=== PATIENT | female | born 1995 | race Caucasian/White ===

== ENCOUNTER 2016-08-28 20:00 | Emergency (ER) | payer SELFPAY ==
[~2016-08-28] VITALS: Ht 162.6 cm; Wt 58.5 kg
[2016-08-28 20:03] VITALS: Ht 162.6 cm; Wt 58.5 kg
[2016-08-28] MEDS ORDERED: morphine 4 MG/ML VIAL IV STA (21:52)
[2016-08-28] MEDS ORDERED: ONDANSETRON 4 MG INJ IV STA (21:52)
--- NOTE | 2016-08-28 22:03 | ERD ---
ER Documentation Chief Complaint Date/Time DATE: 08/28/16 TIME: 22:00 Chief Complaint RLQ abd pain x 3 days HPI 20-year-old female presents to emergency department for complaints of right lower quadrant abdominal pain for 3 days, patient describes the pain as throbbing pain, 6/10 scale, accompanied with nausea but denies any vomiting. Patient denies any vomiting diarrhea or constipation. Patient denies hematuria or dysuria. Patient denies any fever or chills. ROS All systems reviewed and are negative except as per history of present illness. Medications Home Meds Reported Medications [none] Unknown Strength No Conflict Check 08/28/16 Allergies Allergies: Coded Allergies: No Known Allergy (Unverified , 08/28/16) PMhx/Soc Medical and Surgical Hx: pt denies Medical Hx, pt denies Surgical Hx FmHx Family History: No coronary disease, No diabetes, No other Physical Exam Vitals Vital Signs Date Time Temp Pulse Resp B/P Pulse Ox O2 Delivery O2 Flow Rate FiO2 08/28/16 20:03 98.3 75 20 122/60 100 Physical Exam GENERAL: The patient is well developed and appropriate for usual state of health, in no apparent distress. CHEST: Clear to auscultation bilaterally. There are no rales, wheezes or rhonchi. HEART: Regular rate and rhythm. No murmurs, clicks, rubs or gallops. No S3 or S4. ABDOMEN: Soft, right lower quadrant tenderness Good bowel sounds. No rebound or guarding. No gross peritonitis. No gross organomegaly or masses. BACK: No midline or flank tenderness. EXTREMITIES: Equal pulses bilaterally. There is no peripheral clubbing, cyanosis or edema. No focal swelling or erythema. Full range of motion. Grossly neurovascularly intact. NEURO: Alert and oriented. Cranial nerves 2-12 intact. Motor strength in all 4 extremities with 5/5 strength. Sensation grossly intact. Normal speech and gait. SKIN: There is no apparent rash or petechia. The skin is warm and dry. HEMATOLOGIC AND LYMPHATIC: There is no evidence of excessive bruising or lymphedema. No gross cervical, axillary, or inguinal lymphadenopathy. Result Diagram: 08/28/167 08/28/16 2217 Results 24 hrs Laboratory Tests Test 08/28/16 22:15 08/28/16 22:17 Urine Color YELLOW Urine Clarity SLIGHTLY CLOUDY Urine pH 5.0 Urine Specific Dexter 1.013 Urine Ketones NEGATIVEmg/dL Urine Nitrite NEGATIVEmg/dL Urine Bilirubin NEGATIVEmg/dL Urine Urobilinogen NEGATIVEmg/dL Urine Leukocyte Esterase 1+Martha/ul Urine Microscopic RBC 1/HPF Urine Microscopic WBC 5/HPF Urine Squamous Epithelial Cells FEW/HPF Urine Hemoglobin NEGATIVEmg/dL Urine Glucose NEGATIVEmg/dL Urine Total Protein NEGATIVEmg/dl White Blood Count 8.610^3/ul Red Blood Count 4.3210^6/ul Hemoglobin 13.1g/dl Hematocrit 40.8% Mean Corpuscular Volume 94.4fl Mean Corpuscular Hemoglobin 30.3pg Mean Corpuscular Hemoglobin Concent 32.1g/dl Red Cell Distribution Width 13.3% Platelet Count 85180^3/UL Mean Platelet Volume 9.6fl Neutrophils % 49.6% Lymphocytes % 32.4% Monocytes % 12.9% Eosinophils % 4.4% Basophils % 0.5% Nucleated Red Blood Cells % 0.0/100WBC Neutrophils # 4.310^3/ul Lymphocytes # 2.810^3/ul Monocytes # 1.110^3/ul Eosinophils # 0.410^3/ul Basophils # 0.010^3/ul Nucleated Red Blood Cells # 0.010^3/ul Sodium Level 140mmol/L Potassium Level 3.6mmol/L Chloride Level 102mmol/L Carbon Dioxide Level 23mmol/L Anion Gap 19 Blood Urea Nitrogen 7mg/dl Creatinine 0.70mg/dl Glucose Level 91mg/dl Calcium Level 9.5mg/dl Total Bilirubin 0.2mg/dl Direct Bilirubin 0.00mg/dl Indirect Bilirubin 0.2mg/dl Aspartate Amino Transf (AST/SGOT) 18IU/L Alanine Aminotransferase (ALT/SGPT) 23IU/L Alkaline Phosphatase 63IU/L Total Protein 8.5g/dl Albumin 4.7g/dl Globulin 3.80g/dl Albumin/Globulin Ratio 1.23 Lipase 83U/L Current Medications Medications (Trade) Dose Ordered Sig/Evan Route PRN Reason Start Time Stop Time Status Last Admin Dose Admin Morphine Sulfate (morphine) 4 mg ONCE STAT IV 08/28/16 21:52 08/28/16 21:54 DC 08/28/16 22:19 Ondansetron HCl (Zofran Inj) 4 mg ONCE STAT IV 08/28/16 21:52 7/19/17 21:54 DC 08/28/16 22:18 Patient was given medication for pain here in emergency department, after treatment, patient verbalized feeling much better. Patient's pain is improved.Patient was given Zofran here in the emergency department. After treatment, patient was able to tolerate po fluids here in the emergency department without any vomiting. There is no signs and symptoms of dehydration. PROCEDURE: CT ABDOMEN/PELVIS WITHOUT CONTRAST CLINICAL INDICATION: 20-year-old female with right lower quadrant pain. TECHNIQUE: The study was performed utilizing a [employer] VCT 64-slice CT scanner. Direct axial sections were obtained through the abdomen and pelvis without the use of intravenous contrast material. Sagittal and coronal reformations were obtained. One or more of the following dose reduction techniques were utilized: automated exposure control, adjustment of the mA and/ or kV according to patient's size or use of iterative reconstruction technique. The images were reviewed on a PACS workstation. CTD/vol = 6.9 mGy; Total Exam DLP = 350.1 mGy-cm. COMPARISON: None. FINDINGS: The lung bases are unremarkable. There is no evidence for significant pleural effusion. The liver has a normal size and contour without focal areas of abnormal density. No intrahepatic nor extrahepatic biliary ductal dilatation is seen. The gallbladder demonstrates no wall thickening nor pericholecystic fluid. No biliary stones are evident. The pancreas is without areas of abnormal attenuation. The spleen is identified and has a normal size without abnormal density. The adrenal glands are unremarkable. The kidneys are without abnormal density. No hydroureteronephrosis nor nephroureterolithiasis is evident. The urinary bladder contains urine. There is mild retained stool within the colon without obstruction. The appendix is visualized and is without abnormal thickening or surrounding inflammatory reaction. The uterus is unremarkable. There is a large cystic mass within the pelvis measuring approximately 8.2 x 7.8 x 11.4 cm which appears to have septations and minimal calcifications within it. There is mild pelvic free fluid. The aortoiliac vessels are without aneurysmal dilatation. The osseous structures are intact. IMPRESSION: 1. Large pelvic cystic mass with septations and minimal calcifications. This may represent an ovarian cystadenoma. Further evaluation is indicated. 2. Mild pelvic free fluid. 3. Mild retained stool within the colon without obstruction. 4. No CT evidence for appendicitis. .Garrett Ricci MD, MD Date Time Electronically viewed and signed by .Garrett Ricci MD, MD on 08/28/2016 23:28 .M/ CC: NU MEEHAN NP PROCEDURE: US Pelvis. CLINICAL INDICATION: Pelvic pain TECHNIQUE: Multiple sonographic images of the pelvis were obtained utilizing a transabdominal technique. The images were reviewed on a PACS workstation. COMPARISON: None available FINDINGS: Uterus: Normal in size, contour and echogenicity with no evidence for myometrial masses. Size is estimated at 8.2 x 4.2 x 2.6 cm. Cervix: No abnormalities of significance are seen. Endometrium: Normal in thickness; 10.1 mm. Right ovary / adnexa: Enlarged by a septated ovarian cyst that measures 11.2 x 7.8 x 7 cm. Overall ovarian size estimated at 11.8 x 8.4 x 7.3 cm. There is blood flow demonstrated within the ovarian tissue. Left ovary/adnexa: Normal in size estimated at 4.4 x 2.6 x 1.8 cm. No evidence for solid masses, normal blood flow on Doppler interrogation. Cul-de-sac: Trace amount of free fluid. RPTAT:HJJR IMPRESSION: 1. Large complex cystic mass of the right ovary measures approximately 11.2 x 7.8 x 7 cm likely a cyst with septations and internal debris but without associated portion. Follow-up evaluation is recommended. 2. Small amount of fluid in the cul-de-sac possibly physiologic. 3. Remainder of the examination is unremarkable. Physician Ania Date Time Electronically viewed and signed by Physician Ania on 08/29/2016 00:53 JR/ CC: UN MEEHAN NP I discussed this case with OB Laborist, , at this time, patient's pain is controlled, no symptoms of any ovarian torsion, patient has an enlarged cyst on affected area, most of the time is benign but patient is to have tumor markers checked by outpatient OB doctor for further evaluation. Upon reevaluation of the patient, patient does not complain of any pain, patient is comfortable and resting. Outpatient management is appropriate at this time as per recommendation by the OB. Procedures/MDM Medical Decision Making: She has a right ovarian cyst that is complex and enlarged most likely is causing the right lower quadrant abdominal pain. No appendicitis noted. No symptoms of any ovarian torsion, patient was given torsion precautions, this time, patient has good flow to ovaries and ultrasound , patient pain is also controlled. As per discussion with OB, outpatient management is appropriate, was recommended to do tumor markers and possible do a surgical procedure for possible removal of the cyst. There is low suspicion for abdominal emergencies at this time. Patients abdominal exam is normal at this time. Patients radiology exam does not show any abdominal emergencies at this time. There is low suspicion for appendicitis, cholecystitis, abdominal aortic aneurysms or peritonitis at this time. There is low suspicion for sepsis. Patient appears well and is hemodynamically stable. Disposition: Home. Condition: Stable Prescription ibuprofen, tramadol Instructions: Patient is advised to take medications as prescribed. Patient is advised to rest, increase fluid intake and do see OB doctor for possible removal of the ovarian cyst and for tumor markers evaluation. Patient is advised that if symptoms are worse, severe abdominal pain, uncontrolled vomiting , high fever, severe flank pain, worst signs and symptoms, to return to the emergency department immediately. Otherwise, patient can follow up with primary care doctor in 5-7 days. Disclaimer: Inadvertent spelling and grammatical errors are likely due to EHR/ dictation software use and do not reflect on the overall quality of patient care. Also, please note that the electronic time recorded on this note does not necessarily reflect the actual time of the patient encounter. Departure Diagnosis: Primary Impression: Ovarian cyst Laterality: right Qualified Code: N83.201 - Cyst of right ovary Condition: Stable Patient Instructions: Ovarian Cyst Additional Instructions: Patient is advised to take medications as prescribed. Patient is advised to rest , increase fluid intake and do see OB doctor for possible removal of the ovarian cyst and for tumor markers evaluation. Patient is advised that if symptoms are worse, severe abdominal pain, uncontrolled vomiting, high fever, severe flank pain, worst signs and symptoms, to return to the emergency department immediately. Otherwise, patient can follow up with primary care doctor in 5-7 days. NU MEEHAN NP Aug 28, 2016 22:02
[2016-08-28 22:38] LABS: ADD SCAN DIFF NO
[2016-08-28 22:47] LABS: BASOPHILS % 0.5 % (0.0-2.0); EOSINOPHILS # 0.4 10^3/ul (0.0-0.5); EOSINOPHILS % 4.4 % (0.0-7.0); HEMATOCRIT 40.8 % (37.0-47.0); HEMOGLOBIN 13.1 g/dl (12.0-16.0); LYMPHOCYTES # 2.8 10^3/ul (0.8-2.9); LYMPHOCYTES % 32.4 % (18.0-55.0); MEAN CORPUSCULAR HEMOGLOBIN 30.3 pg (29.0-33.0); MEAN CORPUSCULAR HGB CONC 32.1 g/dl (32.0-37.0); MEAN CORPUSCULAR VOLUME 94.4 fl (72.0-104.0); MEAN PLATELET VOLUME 9.6 fl (7.4-10.4); MONOCYTE # 1.1 10^3/ul (0.3-0.9); MONOCYTES % 12.9 % (0.0-13.0); NEUTROPHIL # 4.3 10^3/ul (1.6-7.5); NEUTROPHILS % 49.6 % (30.0-74.0); PLATELET COUNT 250 10^3/UL (140-415); RED BLOOD COUNT 4.32 10^6/ul (4.20-5.40); RED CELL DISTRIBUTION WIDTH 13.3 % (11.5-14.5); WHITE BLOOD COUNT 8.6 10^3/ul (4.8-10.8)
[2016-08-28 22:48] LABS: ADD UMIC YES; UR ASCORBIC ACID NEGATIVE (NEGATIVE); UR BILIRUBIN (Dip) NEGATIVE (NEGATIVE); UR BLOOD (Dip) NEGATIVE (NEGATIVE); UR CLARITY SLIGHTLY CLOUDY (CLEAR); UR COLOR YELLOW (YELLOW); UR GLUCOSE (Dip) NEGATIVE (NEGATIVE); UR KETONES (Dip) NEGATIVE (NEGATIVE); UR LEUKOCYTE ESTERASE (Dip) 1+ Leu/ul (NEGATIVE); UR NITRITE (Dip) NEGATIVE (NEGATIVE); UR RBC 1 /HPF (0-5); UR SPECIFIC GRAVITY (Dip) 1.013 (1.003-1.030); UR SQUAMOUS EPITHELIAL CELL FEW /HPF (FEW); UR TOTAL PROTEIN (Dip) NEGATIVE (NEGATIVE); UR UROBILINOGEN (Dip) NEGATIVE (NEGATIVE)
[2016-08-28 23:01] LABS: ALBUMIN 4.7 g/dl (3.3-4.9); ALBUMIN/GLOBULIN RATIO 1.23; BILIRUBIN,INDIRECT 0.2 mg/dl (0-1.1); BILIRUBIN,TOTAL 0.2 mg/dl (0.2-1.3); CALCIUM 9.5 mg/dl (8.4-10.2); CREATININE 0.7 mg/dl (0.44-1.00); POTASSIUM 3.6 mmol/L (3.5-5.1); TOTAL PROTEIN 8.5 g/dl (6.1-8.1)
--- NOTE | 2016-08-28 23:28 | RADRPT ---
PROCEDURE: CT ABDOMEN/PELVIS WITHOUT CONTRAST CLINICAL INDICATION: 20-year-old female with right lower quadrant pain. TECHNIQUE: The study was performed utilizing a [employer] VCT 64-slice CT scanner. Direct axia l sections were obtained through the abdomen and pelvis without the use of intravenous contrast mate rial. Sagittal and coronal reformations were obtained. One or more of the following dose reduction t echniques were utilized: automated exposure control, adjustment of the mA and/or kV according to pat ient's size or use of iterative reconstruction technique. The images were reviewed on a PACS workst [employer]. CTD/vol = 6.9 mGy; Total Exam DLP = 350.1 mGy-cm. COMPARISON: None. FINDINGS: The lung bases are unremarkable. There is no evidence for significant pleural effusion. The liver has a normal size and contour without focal areas of abnormal density. No intrahepatic nor extrahepa tic biliary ductal dilatation is seen. The gallbladder demonstrates no wall thickening nor perichole cystic fluid. No biliary stones are evident. The pancreas is without areas of abnormal attenuation. The spleen is identified and has a normal size without abnormal density. The adrenal glands are unr emarkable. The kidneys are without abnormal density. No hydroureteronephrosis nor nephroureterolithi asis is evident. The urinary bladder contains urine. There is mild retained stool within the colon w ithout obstruction. The appendix is visualized and is without abnormal thickening or surrounding in flammatory reaction. The uterus is unremarkable. There is a large cystic mass within the pelvis ruben suring approximately 8.2 x 7.8 x 11.4 cm which appears to have septations and minimal calcifications within it. There is mild pelvic free fluid. The aortoiliac vessels are without aneu rysmal dilatation. The osseous structures are intact. IMPRESSION: 1. Large pelvic cystic mass with septations and minimal calcifications. This may represent an ovar jackson cystadenoma. Further evaluation is indicated. 2. Mild pelvic free fluid. 3. Mild retained stool within the colon without obstruction. 4. No CT evidence for appendicitis. .Garrett Ricci MD, MD Date Time Electronically viewed and signed by .Garrett Ricic MD, on 08/28/2016 23:28 .Ajith
--- NOTE | 2016-08-29 00:54 | RADRPT ---
PROCEDURE: US Pelvis. CLINICAL INDICATION: Pelvic pain TECHNIQUE: Multiple sonographic images of the pelvis were obtained utilizing a transabdominal tech nique. The images were reviewed on a PACS workstation. COMPARISON: None available FINDINGS: Uterus: Normal in size, contour and echogenicity with no evidence for myometrial masses. Size is est imated at 8.2 x 4.2 x 2.6 cm. Cervix: No abnormalities of significance are seen. Endometrium: Normal in thickness; 10.1 mm. Right ovary / adnexa: Enlarged by a septated ovarian cyst that measures 11.2 x 7.8 x 7 cm. Overall ovarian size estimated at 11.8 x 8.4 x 7.3 cm. There is blood flow demonstrated within the ovarian tissue. Left ovary/adnexa: Normal in size estimated at 4.4 x 2.6 x 1.8 cm. No evidence for solid masses, no rmal blood flow on Doppler interrogation. Cul-de-sac: Trace amount of free fluid. RPTAT:HJJR IMPRESSION: 1. Large complex cystic mass of the right ovary measures approximately 11.2 x 7.8 x 7 cm likely a c yst with septations and internal debris but without associated portion. Follow-up evaluation is rec ommended. 2. Small amount of fluid in the cul-de-sac possibly physiologic. 3. Remainder of the examination is unremarkable. Physician Ania Date Time Electronically viewed and signed by Physician Ania on 08/29/2016 00:53 /
[2016-08-29] MEDS ORDERED: HYDR-906 PO (01:41)
[2016-08-29] MEDS ORDERED: IBUP-1542 PO (01:41)
[2016-08-29 02:05] VITALS: BP 112/64; PULSE 60; RESP 16
== END 2016-08-29 02:06 | disposition home or self-care (01) ==
LOC: FTE 20:00
DX: N83.201 Unspecified ovarian cyst, right side (principal); R10.2 Pelvic and perineal pain; R11.0 Nausea
CPT/HCPCS: 74176; 76856; 80053; 81001; 83690; 85025; J2270; J2405; 36415; 96374; 96375